=== PATIENT | female | born 1975 ===

== ENCOUNTER 2017-11-16 09:55 | Emergency (ER) | payer MEDICAID, OTHER ==
[2017-11-16 10:10] VITALS: O2SAT 99
[2017-11-16 10:29] VITALS: RESP 16
[2017-11-16] MEDS ORDERED: Sodium Chloride 0.9% 500 ML IV STA (11:25)
--- NOTE | 2017-11-16 11:44 | RAD ---
HISTORY: Shortness of breath COMPARISON: No prior. TECHNIQUE: Chest PA and lateral FINDINGS: LINES AND TUBES: None. LUNG AND PLEURA: The lungs are well inflated and clear. No pleural effusion or pneumothorax. HEART AND MEDIASTINUM: The heart is not enlarged. The hilar and mediastinal contours are within normal limits. SKELETAL STRUCTURES: The bony structures are within normal limits for the patient's age. VISUALIZED UPPER ABDOMEN: Normal. OTHER FINDINGS: None. IMPRESSION: No active pulmonary disease.
[2017-11-16 11:55] LABS: BASO % 0.7 % (0.0-2.0); EOS % 0.4 % (0.0-4.0); LYMPH # 1.9 K/uL (1.0-4.3); MEAN CELL VOLUME 85.4 fL (81.0-99.0); MEAN CORPUSCULAR HEMOGLOBIN 29.2 pg (27.0-31.0); MEAN CORPUSCULAR HGB CONC 34.2 g/dL (33.0-37.0); MEAN PLATELET VOLUME 10.3 fL (7.2-11.7); MONO # 0.4 K/uL (0.0-0.8); MONO % 6.8 % (0.0-10.0); NEUT # 3.2 K/uL (1.8-7.0); NEUT % 58.1 % (50.0-75.0); RBC 4.45 Mil/uL (3.80-5.20); RED CELL DISTRIBUTION WIDTH 13.7 % (11.5-14.5); WHITE BLOOD COUNT 5.5 K/uL (4.8-10.8)
[2017-11-16] MEDS ORDERED: Sodium Chloride 0.9% 500 ML IV ONE (12:03)
[2017-11-16 12:19] LABS: ALB/GLOB RATIO 1.2 (1.0-2.1); ALBUMIN 4.4 g/dL (3.5-5.0); ALT/SGPT 39 U/L (9-52); AST/SGOT 35 U/L (14-36); BLOOD UREA NITROGEN 12 mg/dL (7-17); CALCIUM 9.6 mg/dl (8.6-10.4); GFR NON-AFRICAN AMERICAN > 60
--- NOTE | 2017-11-16 12:50 | CT ---
Date of service: 11/16/2017 PROCEDURE: CT HEAD WITHOUT CONTRAST. HISTORY: right facial numbness COMPARISON: None available. TECHNIQUE: Axial computed tomography images were obtained through the head/brain without intravenous contrast. Radiation dose: Total exam DLP = 1010.89 mGy-cm. This CT exam was performed using one or more of the following dose reduction techniques: Automated exposure control, adjustment of the mA and/or kV according to patient size, and/or use of iterative reconstruction technique. FINDINGS: HEMORRHAGE: No acute parenchymal, subarachnoid or extra-axial hemorrhage. BRAIN: No evidence of large acute infarct. Note that the possibility of a small hyperacute infarct cannot be excluded on this exam. No mass effect or edema. No atrophy or chronic microvascular ischemic changes. VENTRICLES: No obstructive hydrocephalus. CALVARIUM: Unremarkable. PARANASAL SINUSES: Unremarkable as visualized. No significant inflammatory changes. MASTOID AIR CELLS: Unremarkable as visualized. No inflammatory changes. OTHER FINDINGS: None. IMPRESSION: No acute intracranial hemorrhage.
[2017-11-16 12:55] LABS: INR 1.2; PARTIAL THROMBOPLASTIN TIME 32 SECONDS (21-34); PROTHROMBIN TIME 12.8 SECONDS (9.7-12.2)
[2017-11-16 12:56] LABS: D DIMER < 200 ng/mlDDU (0-243)
[2017-11-16 14:00] LABS: URINE CLARITY Clear (Clear); URINE COLOR YELLOW (YELLOW); URINE GLUCOSE (UA) Normal (Normal)
[2017-11-16 14:01] LABS: SQUAMOUS EPITHIAL 1 /hpf (0-5); URINE BILIRUBIN NEGATIVE (NEGATIVE); URINE BLOOD NEGATIVE (NEGATIVE); URINE LEUKOCYTE ESTERASE NEGATIVE Leu/uL (Negative); URINE PROTEIN NEGATIVE (NEGATIVE); URINE UROBILINOGEN Normal mg/dL (0.2-1.0)
--- NOTE | 2017-11-16 14:24 | C.PDOC ---
History Of Present Illness 42 year old female presents to the ED for evaluation of cough which began around 1 month ago. Patient notes symptoms started as shortness of breath and sore throat for one month. Additionally, patient reports she developed right-sided facial numbness over the last two weeks. She denies fever, chills, vision change, headache, nausea, vomiting. Time Seen by Provider: 11/16/17 10:27 Chief Complaint (Nursing): Shortness Of Breath History Per: Patient History/Exam Limitations: no limitations Onset/Duration Of Symptoms: Other (one month ) Current Symptoms Are (Timing): Still Present Current Respiratory Medications: See Home Med List Associated Symptoms: denies: Fever, Chills Additional History Per: Patient Past Medical History Reviewed: Historical Data, Nursing Documentation, Vital Signs Vital Signs: Last Vital Signs Temp 98.3 F 11/16/17 10:05 Pulse 72 11/16/17 10:05 Resp 16 11/16/17 10:27 BP 132/89 11/16/17 10:05 Pulse Ox 99 11/16/17 10:05 - Medical History PMH: Hypercholesterolemia Surgical History: No Surg Hx Family History: States: Unknown Family Hx - Social History Hx Alcohol Use: No Hx Substance Use: No - Immunization History Hx Tetanus Toxoid Vaccination: (unk) Hx Influenza Vaccination: No Hx Pneumococcal Vaccination: No Review Of Systems Constitutional: Negative for: Fever, Chills ENT: Positive for: Throat Pain Respiratory: Positive for: Cough, Shortness of Breath Gastrointestinal: Negative for: Nausea, Vomiting Neurological: Positive for: Numbness (right-sided, facial ). Negative for: Headache Physical Exam - Physical Exam Appears: Non-toxic, No Acute Distress Skin: Normal Color, Warm, Dry Head: Atraumatic, Normacephalic Eye(s): bilateral: Normal Inspection Ear(s): Bilateral: Normal Nose: Normal, No Discharge Oral Mucosa: Moist Throat: Normal, No Erythema, No Exudate Neck: Supple Chest: Symmetrical, No Deformity, No Tenderness Cardiovascular: Rhythm Regular, No Murmur Respiratory: Normal Breath Sounds, No Rales, No Rhonchi, No Wheezing Extremity: Normal ROM, Capillary Refill (less than 2 seconds ) Neurological/Psych: Oriented x3, Normal Speech, Normal Cognition Gait: Steady ED Course And Treatment - Laboratory Results Result Diagrams: 11/16/17 11:47 11/16/17 11:47 O2 Sat by Pulse Oximetry: 99 Pulse Ox Interpretation: Normal Progress Note: Bloodwork, urinalysis, CXR, CT Head ordered and reviewed. IV Fluids given. On reassessment, patient is resting comfortably, showing no signs of distress and is stable for discharge. Patient is advised to follow up with ENT within 1-2 days for further evaluation and/or return to the ED if symptoms persist or worsen. Disposition - Disposition Referrals: [facility] at [facility] [Outside] Ben Montanez MD [Staff Provider] - Disposition: HOME/ ROUTINE Disposition Time: 14:22 Condition: STABLE Additional Instructions: Follow up with PMD/Clinic and ENT specialist within 1-2 days. Return to ED if feel worse. Prescriptions: Famotidine [Pepcid] 20 mg PO BID #20 tab Benzonatate [Tessalon Perles] 2 tab PO TID #60 sgl Instructions: Sore Throat, Adult (DC), Cough, Adult (DC), Paresthesias (DC) Forms: Talknote (Kyrgyz) Print Language: MICRONESIAN - Clinical Impression Clinical Impression: Chronic cough, Sore throat, Facial paresthesia - PA / FINGERPRINT CLASSIFIER / Resident Statement MD/DO has reviewed & agrees with the documentation as recorded. - Scribe Statement The provider has reviewed the documentation as recorded by the Scribe (Esther Guzmán) All medical record entries made by the Scribe were at my direction and personally dictated by me. I have reviewed the chart and agree that the record accurately reflects my personal performance of the history, physical exam, medical decision making, and the department course for this patient. I have also personally directed, reviewed, and agree with the discharge instructions and disposition.
--- NOTE | 2017-11-16 14:25 | C.PDOC ---
Time Seen by Provider: 11/16/17 10:27 Chief Complaint (Nursing): Shortness Of Breath Past Medical History Vital Signs: Last Vital Signs Temp 98.3 F 11/16/17 10:05 Pulse 72 11/16/17 10:05 Resp 16 11/16/17 10:27 BP 132/89 11/16/17 10:05 Pulse Ox 99 11/16/17 10:05 - Medical History PMH: Hypercholesterolemia - Social History Hx Alcohol Use: No Hx Substance Use: No - Immunization History Hx Tetanus Toxoid Vaccination: (unk) Hx Influenza Vaccination: No Hx Pneumococcal Vaccination: No ED Course And Treatment - Laboratory Results Result Diagrams: 11/16/17 11:47 11/16/17 11:47 O2 Sat by Pulse Oximetry: 99 Disposition - Disposition Referrals: Ben Montanez MD [Staff Provider] - [facility] at [facility] [Outside] Disposition: HOME/ ROUTINE Disposition Time: 14:22 Condition: STABLE Additional Instructions: Follow up with PMD/Clinic and ENT specialist within 1-2 days. Return to ED if feel worse. Prescriptions: Famotidine [Pepcid] 20 mg PO BID #20 tab Benzonatate [Tessalon Perles] 2 tab PO TID #60 sgl Instructions: Cough, Adult (DC), Sore Throat, Adult (DC), Paresthesias (DC) Print Language: ARABIC - Clinical Impression Clinical Impression: Chronic cough, Sore throat, Facial paresthesia
[2017-11-16 14:56] VITALS: BP 113/76; PULSE 84; TEMP 98.6
== END 2017-11-16 14:45 | disposition home or self-care (01) ==
LOC: C.ER 09:55
DX: J02.9 Acute pharyngitis, unspecified (principal); R20.2 Paresthesia of skin; R05 Cough; E78.00 Pure hypercholesterolemia, unspecified
CPT/HCPCS: 70450; 71046; 80053; 81001; 84703; 85025; 85378; 85610; 85730; 99284; J7040

== ENCOUNTER 2018-03-18 12:12 | Outpatient (CLI) | payer OTHER | END 2018-03-18 12:13 | disposition home or self-care (01) | LOC: C.USIC 12:12 | DX: N85.2 Hypertrophy of uterus (principal); N64.4 Mastodynia ==